=== PATIENT | male | born 1990 | race African-American/Black ===

== ENCOUNTER 2022-08-13 20:22 | Emergency (ER) | payer MEDICAID, OTHER ==
[~2022-08-13] VITALS: Ht 175.3 cm; Wt 101.2 kg
[2022-08-13 20:43] VITALS: BP 136/89
[2022-08-13] MEDS ORDERED: LIDOCAINE HCL/EPINEPHRINE 1%-EPI 1:100,000 20 ML VIAL INFIL ONE (22:30)
[2022-08-13] MEDS ORDERED: BACITRACIN ZINC OINT UDPKT TOP ONE (22:30)
[2022-08-13] MEDS ORDERED: TETANUS, DIPHTHERIA, PERTUSSIS VAC/PF 0.5ML (>10YR OLD) IM ONE (22:30)
[2022-08-14] MEDS ORDERED: IBUP-2437 MT (01:17)
[2022-08-14] MEDS ORDERED: ACET-2708 MT (01:17)
== END 2022-08-14 02:14 | disposition home or self-care (01) ==
LOC: ER 22:48
DX: S41.011A Laceration without foreign body of right shoulder, initial encounter (principal); X58.XXXA Exposure to other specified factors, initial encounter; Y93.89 Activity, other specified; Y92.89 Other specified places as the place of occurrence of the external cause; Y99.8 Other external cause status
CPT/HCPCS: 12002; 71045; 90471; 90715; 99283; J3490; Z7610

== ENCOUNTER → 2022-08-13 | Emergency (ER) | payer MEDICAID, OTHER ==
[~2022-08-13] VITALS: Ht 175.3 cm; Wt 74.0 kg
[~2022-08-13] MED LIST: ACET-2708 MT; IBUP-2437 MT
== END | disposition left against medical advice (07) ==
LOC: ER 21:51
DX: Z53.21 Procedure and treatment not carried out due to patient leaving prior to being seen by health care provider (principal)
CPT/HCPCS: Z7610 ×3

== ENCOUNTER 2022-09-04 16:22 | Emergency (ER) | payer MEDICAID, OTHER ==
[~2022-09-04] VITALS: Ht 177.8 cm; Wt 98.0 kg
[2022-09-04 17:31] VITALS: BP 129/87
== END 2022-09-04 17:33 | disposition home or self-care (01) ==
LOC: ER 16:22
DX: Z48.02 Encounter for removal of sutures (principal)
CPT/HCPCS: 99281